=== PATIENT | male | born 1995 | race Caucasian/White ===

== ENCOUNTER 2017-06-16 00:03 | Emergency (ER) | payer BC ==
[~2017-06-16] VITALS: Ht 170.2 cm; Wt 93.2 kg
[2017-06-16 00:41] VITALS: BP 111/61; TEMP 98.2
[2017-06-16] MEDS ORDERED: AMOXICILLIN 8751 TAB PO (01:43)
[2017-06-16 02:51] VITALS: PULSE 70
== END 2017-06-16 02:53 | disposition home or self-care (01) ==
LOC: COL.ER 00:03
DX: S01.511A Laceration without foreign body of lip, initial encounter (principal); Z23 Encounter for immunization; Y04.2XXA Assault by strike against or bumped into by another person, initial encounter; Y92.59 Other trade areas as the place of occurrence of the external cause